=== PATIENT | female | born 1985 | race Hispanic/Latino ===

== ENCOUNTER 2018-05-07 21:03 | Emergency (ER) | payer OTHER ==
[~2018-05-07] VITALS: Ht 162.6 cm; Wt 86.6 kg
[2018-05-07] MEDS ORDERED: PREDNISONE 20 MG TAB PO ONE (21:30)
--- OUTSIDE RECORDS SUMMARY | 2018-05-15 12:10 | XMS REPORT | Clinical Summary ---
Author Author [facility] Address Unknown Phone Unavailable Care Team Providers Care Film Developer Name Role Phone Den Goodrich MD PCP Allergies Active Allergy Reactions Severity Noted Date Comments No Known Drug Allergies 12/03/2015 Current Medications Prescription Sig. Disp. Refills Start End Date Status Date phentermine (ADIPEX-P) Take 37.5 mg by mouth 0 05/09/20 Active 37.5 mg tablet every morning. 16 triamterene-hydrochloroth Take 1 tablet by mouth 0 08/09/19 Active iazid (MAXZIDE-25) every morning. 17 37.5-25 mg per tablet levonorgestrel (KYLEENA) by intrauterine route. Active 17.5 mcg/24 hr (5 years) Placed 02/23/2017 intrauterine device etonogestrel (NEXPLANON) Nexplanon 68 mg subdermal 10/06/19 Discontin 68 mg implant implant 18 ued traMADol (ULTRAM) 50 mg Take 1 tablet (50 mg 20 tablet 0 11/03/19 11/17/19 tablet total) by mouth every 6 18 18 (six) hours as needed for moderate pain for up to 14 days. Active Problems Problem Noted Date Abnormal LFTs 10/05/2017 Obesity (BMI 30-39.9) 10/05/2017 Upper abdominal pain 09/27/2016 Facial numbness 09/27/2016 Otitis media 12/03/2015 Perforation of tympanic membrane 12/03/2015 Vertigo 12/03/2015 Encounters Date Type Specialty Care Team Description 11/24/2017 Orders Only General Surgery Anahy Tompkins MA RUQ pain (Primary Dx); Status post cholecystectomy 11/15/2017 Office Visit General Surgery Aj Alcala MD Postoperative follow-up (Primary Dx) 11/02/2017 [facility] General Surgery Aj Alcala MD Cholecystitis, chronic Encounter 11/02/2017 Anesthesia General Surgery Naeem Mane Event MD 11/02/2017 Procedure Pass General Surgery 11/02/2017 Surgery General Surgery Aj Alcala MD LAPAROSCOPIC CHOLECYSTECTOMY 10/26/2017 Anesthesia Pre-Admission Testing ArgenisjaneFidelinaEvitaanika, Angelina España NP 10/25/2017 Pre-Admit Pre-Admission Testing Aj Alcala MD Pre-op testing (Primary Testing Dx) Appointment 10/25/2017 Office Visit General Surgery jA Alcala MD Calculus of gallbladder with chronic cholecystitis without obstruction (Primary Dx) 10/19/2017 Hospital Radiology Den Goodrich MD Epigastric pain Encounter 10/05/2017 Office Visit Internal Medicine Den Goodrich MD Epigastric pain (Primary Dx); Abnormal LFTs; Obesity (BMI 30-39.9) 10/05/2017 Orders Only Internal Medicine Den Goodrich MD after 05/06/2017 Family History Medical History Relation Name Comments No Known Problems Father Diabetes Maternal Korin Oneala Grandmother Diabetes Mother Precious Carvalho Hyperlipidemia Mother Precious Carvalho Diabetes Paternal Maggie Grandmother Loya Relation Name Status Comments Father Alive Maternal Grandmother Korin Oneala Mother Precious Alive Deven Paternal Grandmother Maggie Loya Social History Tobacco Use Types Packs/Day Years Used Date Never Smoker Smokeless Tobacco: Never Used Alcohol Use Drinks/Week oz/Week Comments Yes 1 Standard 0.6 Social drinker drinks or equivalent Sex Assigned at Date Recorded Not on file Last Filed Vital Signs Vital Sign Reading Time Taken Blood Pressure 117/82 11/15/2017 2:15 PM CDT Pulse 92 11/15/2017 2:15 PM CDT Temperature 36.8 C (98.3 F) 11/15/2017 2:15 PM CDT Respiratory Rate 16 11/15/2017 2:15 PM CDT Oxygen Saturation 99% 11/15/2017 2:15 PM CDT Inhaled Oxygen - - Concentration Weight 93.4 kg (206 lb) 11/15/2017 2:15 PM CDT Height 157.5 cm (5' 2") 11/15/2017 2:15 PM CDT Body Mass Index 37.68 11/15/2017 2:15 PM CDT Plan of Treatment Date Type Specialty Care Team Description 06/28/2018 Office Visit Obstetrics and Gynecology Licha Escobar MD [address] [facility] [address] [place] [address] Health Maintenance Due Date Last Done Comments INFLUENZA VACCINE 02/28/2018 CERVICAL CANCER SCREENING 02/09/2020 02/08/2017, 07/31/2013 Procedures Procedure Name Priority Date/Time Associated Diagnosis Comments SURGICAL PATHOLOGY Routine 11/02/2017 Results for this REQUEST 12:04 PM CDT procedure are in the results section. W[place] AN ELECTIVE Routine 11/02/2017 ENDOTRACHEAL AIRWAY 8:37 AM CDT Procedure Note - Ursula Webber, SOCIAL WORK NURSE - 11/02/2017 8:37 AM CDT Airway Date/Time: 11/02/2017 7:51 AM Performed by: URSULA WEBBER Authorized by: NAEEM MANE Location: OR Urgency: Elective Difficult Airway: No Resident/C RNA/AA: URSULA WEBBER Performed by: resident/C RNA/AA Preoxygena gissel with 100% O2: Yes Mask Ventilatio n: Easy mask Final Airway Type: Endotrache al airway Final Endotrache al Airway: ETT Cuffed: Yes Technique Used: Direct laryngosco py Devices/Me thods Used in Placement: Intubatin g stylet Insertion Site: Oral Blade Type: Antonio Laryngosco pe Blade/Vide olaryngosc ope Blade Size: 2 ETT Size (mm): 7.0 Cuff at minimum occlusion pressure: Yes Measured from: Lips ETT to Lips (cm): 21 Placement Verified by: CO2 detection, direct visualizat ion and equal breath sounds Laryngosco pic view: Grade I - full view of glottis Rapid Sequence Induction (RSI): No Modified RSI: No Number of Attempts at Approach: 1 SIVI, easy mask. DL x 1 with Mil 2, ETT 7.0 placed with ease, no trauma. +etco2, no aspiration . Dentition unchanged. vss CHOLECYSTECTOMY, 11/02/2017 Cholecystitis, chronic LAPAROSCOPIC 7:30 AM CDT ECG PRE/POST OP Routine 10/25/2017 Pre-op testing Results for this 5:06 PM CDT procedure are in the results section. CBC HEMOGRAM Routine 10/25/2017 Pre-op testing Results for this 5:05 PM CDT procedure are in the results section. HEMOGLOBIN A1C Routine 10/25/2017 Pre-op testing Results for this 5:00 PM CDT procedure are in the results section. HCG QUALITATIVE, URINE Routine 10/25/2017 Pre-op testing Results for this SCREEN 4:44 PM CDT procedure are in the results section. HEPATIC FUNCTION PANEL Routine 10/25/2017 Pre-op testing Results for this 4:44 PM CDT procedure are in the results section. US ABDOMEN COMPLETE Routine 10/19/2017 Epigastric pain Results for this 9:45 AM CDT procedure are in the results section. LIPASE LEVEL Routine 10/05/2017 Results for this 12:00 AM SIDE TRIMMER procedure are in the results section. AMYLASE LEVEL Routine 10/05/2017 Results for this 12:00 AM SIDE TRIMMER procedure are in the results section. HEPATIC FUNCTION PANEL Routine 10/05/2017 Results for this 12:00 AM SIDE TRIMMER procedure are in the results section. COMPREHENSIVE METABOLIC Routine 10/05/2017 Results for this PANEL 12:00 AM SIDE TRIMMER procedure are in the results section. CBC WITH PLATELET AND Routine 10/05/2017 Results for this DIFFERENTIAL 12:00 AM SIDE TRIMMER procedure are in the results section. after 05/06/2017 Results * Surgical pathology request (11/02/2017 12:04 PM) [facility] DEPARTMENT OF PATHOLOGY AND GENOMIC MEDICINE Surgical pathology report See link below for PDF Lab [facility] DEPARTMENT OF Report PATHOLOGY AND GENOMIC MEDICINE Result status This is Final Report to [facility] DEPARTMENT OF [id number] PATHOLOGY AND GENOMIC MEDICINE Performing Organization Address City/[facility] [place] Phone Number [facility] DEPARTMENT OF [address] [place] [address] PATHOLOGY AND GENOMIC MEDICINE * ECG Pre/Post Op (10/25/2017 5:06 PM) Ventricular rate 65 [facility] MUSE Atrial rate 65 [facility]USE WV interval 134 [facility] QRSD interval 84 [facility] QT interval 410 [facility] QTC interval 426 [facility] P axis 1 36 [facility] QRS axis 1 67 [facility] T wave axis 61 [facility]USE EKG impression Normal sinus rhythm-Normal [facility] MUSE ECG-No previous ECGs available- Performing Organization Address City/State/Zipcode Phone Number [facility] MUSE [address] [place], [place] [address] * CBC hemogram (10/25/2017 5:05 PM) WBC 8.02 4.50 - 11.00 k/uL [facility] DEPARTMENT OF PATHOLOGY AND GENOMIC MEDICINE RBC 4.50 4.20 - 5.50 m/uL [facility] DEPARTMENT OF PATHOLOGY AND GENOMIC MEDICINE HGB 13.5 12.0 - 16.0 g/dL [facility] DEPARTMENT OF PATHOLOGY AND GENOMIC MEDICINE HCT 39.4 37.0 - 47.0 % [facility] DEPARTMENT OF PATHOLOGY AND GENOMIC MEDICINE MCV 87.6 82.0 - 100.0 fL [facility] DEPARTMENT OF PATHOLOGY AND GENOMIC MEDICINE MCH 30.0 27.0 - 34.0 pg [facility] DEPARTMENT OF PATHOLOGY AND GENOMIC MEDICINE MCHC 34.3 31.0 - 37.0 g/dL [facility] DEPARTMENT OF PATHOLOGY AND GENOMIC MEDICINE RDW - SD 41.6 37.0 - 55.0 fL [facility] DEPARTMENT OF PATHOLOGY AND GENOMIC MEDICINE MPV 9.3 8.8 - 13.2 fL [facility] DEPARTMENT OF PATHOLOGY AND GENOMIC MEDICINE Platelet count 337 150 - 400 k/uL [facility] DEPARTMENT OF PATHOLOGY AND GENOMIC MEDICINE Nucleated RBC 0.00 /100 WBC [facility] DEPARTMENT OF PATHOLOGY AND GENOMIC MEDICINE Specimen Blood Performing Organization Address [facility] Phone Number [place] [phone] PATHOLOGY AND GENOMIC MEDICINE * Hemoglobin A1c (10/25/2017 5:00 PM) Hemoglobin A1C 5.6 4.0 - 5.6 % [facility] DEPARTMENT OF Comment: PATHOLOGY AND HbA1c cutoffs for diagnosing GENOMIC MEDICINE diabetes: 4.0% - 5.6%=normal 5.7% - 6.4%=increased risk for diabetes (prediabetes) >=6.5%=diabetes Goals for glycemic control (ADA 2016) < 7.0%Target for non adults with diabetes. More or less stringent targets may be appropriate for individual patients. <7.5% Target for Children and adolescents with type 1 diabetes. Specimen Blood Performing Organization Address City/[facility]/Zipcode Phone Number [facility] DEPARTMENT OF [address] [place] [phone] PATHOLOGY AND GENOMIC MEDICINE * hCG qualitative, urine screen (10/25/2017 4:44 PM) hCG qualitative, urine NegativeComment: Sensitivity [facility] DEPARTMENT OF HCG test: 25 mIU/mL PATHOLOGY AND GENOMIC MEDICINE Specimen Urine Performing Organization Address City/[facility] Phone Number [facility] [address] [place] [address] PATHOLOGY AND GENOMIC MEDICINE * Hepatic function panel (10/25/2017 4:44 PM) Only the most recent of 2 results within the time period is included. Albumin 4.3 3.5 - 5.0 g/dL [facility] DEPARTMENT OF PATHOLOGY AND GENOMIC MEDICINE Total bilirubin 0.3 0.0 - 1.2 mg/dL [facility] DEPARTMENT OF PATHOLOGY AND GENOMIC MEDICINE Bilirubin direct <0.2 0.0 - 0.3 mg/dL [facility] DEPARTMENT OF PATHOLOGY AND GENOMIC MEDICINE Alkaline phosphatase 67 35 - 104 U/L [facility] DEPARTMENT OF PATHOLOGY AND GENOMIC MEDICINE Protein 8.1 6.3 - 8.3 g/dL [facility] DEPARTMENT OF Comment: PATHOLOGY AND [place] GENOMIC MEDICINE 4.6-7.0 g/dL 1 week 4.4-7.6 g/dL 7 months-1year 5.1-7.3 g/dL 1-2 years5.6-7 .5 g/dL >3 years6.0-8 .0 g/dL 18-150 6.3-8.3 g/dL ALT 15 5 - 50 U/L [facility] DEPARTMENT OF PATHOLOGY AND GENOMIC MEDICINE AST 22 10 - 35 U/L [facility] DEPARTMENT OF PATHOLOGY AND GENOMIC MEDICINE Specimen Plasma specimen Performing Organization Address City/[facility] Phone Number [facility] DEPARTMENT OF [address] [place] [address] PATHOLOGY AND GENOMIC MEDICINE * US Abdomen Complete (10/19/2017 9:45 AM) Narrative Performed At Examination: US ABDOMEN COMPLETE RADIANT Clinical history: R10.13 Epigastric pain, ABDOMINAL PAIN, Biliary Colic, Gallstones Comparison: None Impression:Transverse and longitudinal sonographic images were obtained through the abdomen. 1.Multiple stones are seen in the gallbladder. There is no evidence of gallbladder wall thickening or pericholecystic fluid to suggest acute cholecystitis.The common ductis normal in caliber measuring 3 mm. 2.The liver appears normal. The portal vein is patent.The spleen is not enlarged. 3.The right kidney measures 12.3 and left kidney 12.3 cm in length. The kidneys demonstrate a normal sonographic appearance. 4.The visualized pancreas, abdominal aorta, and inferior vena cava are unremarkable. 5.There is no suspicious fluid. [facility]-[id number] Procedure Note Interface, Radiology Results Incoming - 10/19/2017 11:53 AM CDT Examination: US ABDOMEN COMPLETE Clinical history: R10.13 Epigastric pain, ABDOMINAL PAIN, Biliary Colic, Gallstones Comparison: None Impression: Transverse and longitudinal sonographic images were obtained through the abdomen. 1. Multiple stones are seen in the gallbladder. There is no evidence of gallbladder wall thickening or pericholecystic fluid to suggest acute cholecystitis. The common duct is normal in caliber measuring 3 mm. 2. The liver appears normal. The portal vein is patent. The spleen is not enlarged. 3. The right kidney measures 12.3 and left kidney 12.3 cm in length. The kidneys demonstrate a normal sonographic appearance. 4. The visualized pancreas, abdominal aorta, and inferior vena cava are unremarkable. 5. There is no suspicious fluid. [facility]-[id number] Performing Organization Address City/State/Zipcode Phone Number [facility] [address] [place] [address] * CBC with platelet and differential (10/05/2017) WBC 7.2 3.4 - 10.8 x10E3/uL [facility] RBC 4.46 3.77 - 5.28 x10E6/uL [facility] HGB 13.4 11.1 - 15.9 g/dL [facility] HCT 40.2 34.0 - 46.6 % [facility] MCV 90 79 - 97 fL [facility] MCH 30.0 26.6 - 33.0 pg [facility] MCHC 33.3 31.5 - 35.7 g/dL [facility] RDW 13.3 12.3 - 15.4 % [facility] Platelet count 374 150 - 379 x10E3/uL [facility] Neutrophils 62 Not Estab. % [facility] Lymphocytes 31 Not Estab. % [facility] Monocytes 5 Not Estab. % [facility] Eosinophils 2 Not Estab. % [facility] Basophils 0 Not Estab. % [facility] Neutrophils, absolute 4.4 1.4 - 7.0 x10E3/uL [facility] Lymphocytes, absolute 2.3 0.7 - 3.1 x10E3/uL [facility] Monocytes, absolute 0.4 0.1 - 0.9 x10E3/uL [facility] Eosinophils, absolute 0.1 0.0 - 0.4 x10E3/uL [facility] Basophils, absolute 0.0 0.0 - 0.2 x10E3/uL [facility] Immature granulocytes 0 Not Estab. % [facility] Immature grans (abs) 0.0 0.0 - 0.1 x10E3/uL [facility] Narrative Performed At Performed at: [facility] [address] [place], [place] [id number] Admeasurer: Abdoul Marion MD, Phone:[phone] Specimen Comment: A duplicate report has been generated due to demographic updates. Performing Organization Address [facility] [place] Phone Number [facility] * Lipase level (10/05/2017) Lipase 20 14 - 72 U/L [facility] Narrative Performed At Performed at:[id number] Admeasurer: Abdoul Marion MD, Phone:[phone] Performing Organization Address [facility] [place] Phone Number [facility] * Amylase level (10/05/2017) Amylase 45 31 - 124 U/L [facility] Narrative Performed At Performed at:[facility] [address] [place], [place] [id number] Admeasurer: Abdoul Marion MD, Phone:[phone] Performing Organization Address [facility] [place] Phone Number [facility] * Comprehensive metabolic panel (10/05/2017) Glucose 117 (H) 65 - 99 mg/dL [facility] BUN, whole blood 18 6 - 20 mg/dL [facility] Creatinine 0.65 0.57 - 1.00 mg/dL [facility] EGFR Non-Afr. Georgian 120 >59 mL/min/1.73 [facility] EGFR 138 >59 mL/min/1.73 [facility] BUN/creatinine ratio 28 (H) 9 - 23 [facility] Sodium 140 134 - 144 mmol/L [facility] Potassium 3.6 3.5 - 5.2 mmol/L [facility] Chloride 99 96 - 106 mmol/L [facility] CO2 25 18 - 29 mmol/L [facility] Calcium 9.8 8.7 - 10.2 mg/dL [facility] Protein 7.4 6.0 - 8.5 g/dL [facility] Albumin, S 4.8 3.5 - 5.5 g/dL [facility] Globulin, total 2.6 1.5 - 4.5 g/dL [facility] Albumin/globulin ratio 1.8 1.2 - 2.2 [facility] Total bilirubin 0.5 0.0 - 1.2 mg/dL [facility] Alkaline phosphatase 73 39 - 117 IU/L [facility] AST 19 0 - 40 IU/L [facility] ALT 17 0 - 32 IU/L [facility] Narrative Performed At Performed at:01 - [facility] [address], [id number] Admeasurer: Abdoul Marion MD, Phone:[phone] Performing Organization Address City/State/Zipcode Phone Number [facility] after 05/06/2017 Insurance Payer Benefit Subscriber ID Type Phone Address Plan / Group [facility] UMR xxxxxxxxxxxx PPO [facility] THC[facility] CHOICE [place] Home:
== END 2018-05-07 21:44 | disposition home or self-care (01) ==
LOC: FSED 21:03
DX: L23.2 Allergic contact dermatitis due to cosmetics (principal)
CPT/HCPCS: 99283; J7512